=== PATIENT | female | born 1970 | race Caucasian/White ===

== ENCOUNTER 2022-09-02 15:18 | Emergency (ER) | payer OTHER, SELFPAY ==
--- NOTE | 2022-09-02 15:22 | ED.CHESTPAIN ---
HPI - Chest Pain General Chief Complaint: Chest Pain Stated Complaint: Chest Pain/Back Pain Time Seen by Provider: 09/02/22 15:22 Source: patient, family and RN notes reviewed History of Present Illness HPI narrative: patient is a 52-year-old female who presents to the Urgent Care with her spouse with complaints of right-sided chest discomfort increased with deep breathing and shortness of breath. Patient states that it started this morning has worsened in the last 30 minutes. Patient was then able to finish her drive home this evening. Patient recently started potassium has not had her levels redrawn since then. States that she has been doing her inhaler and nebulizers for shortness of breath today without much improvement. Patient also has a history of asthma and anxiety. Denies any nausea or vomiting. Denies any recent illness. No other acute complaints. Dyspnea noted. Patient aware of the plan of care. Some parts of this dictation were generated by voice recognition software and may contain typographical and/or grammatical inaccuracies. Related Data Home Medications Medication Instructions Recorded Confirmed albuterol sulfate 2.5 mg/3 mL 2.5 mg inhalation Q4H PRN 09/02/22 09/02/22 (0.083 %) solution for nebulization Shortness Of Breath albuterol sulfate 90 mcg/actuation 2 puff inhalation QID PRN 09/02/22 09/02/22 aerosol inhaler Shortness Of Breath alprazolam 0.25 mg tablet 0.25 mg PO BID 09/02/22 09/02/22 amlodipine 5 mg tablet 5 mg PO DAILY 09/02/22 09/02/22 calcium carbonate 600 mg-vitamin 1 tablet PO DAILY 09/02/22 09/02/22 D3 5 mcg (200 unit) tablet epinephrine 0.3 mg/0.3 mL 0.3 mg IM DAILY PRN Allergic 09/02/22 09/02/22 injection, auto-injector Reaction hydrochlorothiazide 25 mg tablet 25 mg PO DAILY 09/02/22 09/02/22 potassium chloride 10 mEq 10 meq PO DAILY 09/02/22 09/02/22 tablet,extended release Allergies Allergy/AdvReac Type Severity Reaction Status Date / Time cefaclor Allergy Unknown Unknown Verified 09/02/22 16:09 diphenhydramine Allergy Unknown Unknown Verified 09/02/22 16:08 [From Benadryl] Penicillins Allergy Unknown Unknown Verified 09/02/22 16:10 prochlorperazine Allergy Unknown Unknown Verified 09/02/22 16:11 PAPER TAPE Allergy Mild Rash Uncoded 09/02/22 16:09 Review of Systems Review of Systems: CONSTITUTIONAL: Denies fever, chills, or sweats. EYES: Denies visual changes, redness, or discharge. ENT: Denies rhinorrhea, congestion, sore throat, or otalgia. CARDIOVASCULAR: reports of right-sided chest discomfort RESPIRATORY: reports of dyspnea exacerbated with activity GASTROINTESTINAL: Denies abdominal pain, nausea, vomiting, or diarrhea. GENITOURINARY: Denies dysuria or hematuria. SKIN: Denies rash or itching. MUSCULOSKELETAL: Denies back pain, joint pain, or myalgia. NEUROLOGIC: Denies headache, numbness, or weakness. All other systems reviewed are negative, except as documented in HPI. PMFSH Comments At the time of my signature, I reviewed and agree with the nursing past medical, surgical, social, and family history. There is no relevant family history pertinent to the patient complaint. Exam Narrative: GENERAL: This is a well-nourished, well-developed patient. Anxious HEAD: normocephalic, atraumatic. EYES: PERRL. Sclera clear/white. Vision is grossly intact. EARS: External ears normal NOSE: External nose normal with no obvious nasal discharge, nares without redness, no rhinorrhea. THROAT: Mucous membranes moist NECK: Neck supple CARDIOVASCULAR: Regular rate and rhythm RESPIRATORY: Clear to auscultation. dyspnea SKIN: warm, intact with no suspicious lesions or rash, good texture and turgor. NEURO: awake, alert, and oriented to person, place and time. There were no obvious focal neurologic abnormalities. EXTREMITIES: No clubbing, cyanosis, or edema. Course Course Level of Care: Express Care Visit Vital Signs Vital signs: Vital Signs Temperature 97
[2022-09-02 15:24] VITALS: BP 170/65; PULSE 70; RESP 24; TEMP 36.2; O2SAT 98
--- NOTE | 2022-09-02 15:32 | ECG_ITS ---
Measurements Intervals Fults Rate: 61 P: 51 WY: 219 QRS: 9 QRSD: 108 T: 30 QT: 450 QTc: 457 Interpretive Statements SINUS RHYTHM WITH PROLONGED WY INTERVAL/1ST DEGREE AV BLOCK ABNORMAL ECG INTERPRETATION BASED ON A DEFAULT AGE OF 40 YEARS NO PREVIOUS ECG AVAILABLE FOR COMPARISON Electronically Signed On 09-03-2022 14:42:03 INFORMATION TECHNOLOGY AUDIT MANAGER by Jimy Ray M.D.
[2022-09-02 15:54] VITALS: BP 157/78; PULSE 78; RESP 22; O2SAT 100
== END 2022-09-02 15:54 | disposition short-term general hospital (02) ==
PROVIDERS: Emergency Provider Nurse Practitioner Family
DX: R07.9 Chest pain, unspecified (principal); I44.0 Atrioventricular block, first degree; I10 Essential (primary) hypertension; J45.909 Unspecified asthma, uncomplicated; F41.9 Anxiety disorder, unspecified
CPT/HCPCS: 93005; 99215; G0463

== ENCOUNTER 2023-10-17 12:23 | Emergency (ER) | payer OTHER, SELFPAY ==
--- NOTE | ~2023-10-17 | XR_ITS ---
Right ankle Technique: AP, oblique, and lateral views were obtained. Clinical History: Pain Findings: There is a mildly displaced lateral talar fracture. Ankle mortise and other visualized humble nt spaces are preserved. Plantar calcaneal spur present. Soft tissues are otherwise unremarkable. Impression: Mildly displaced lateral talar fracture. Reviewed, dictated and finalized at [facility]. [employer] Impression: Mildly displaced lateral talar fracture.
[2023-10-17 12:42] VITALS: BP 132/69; PULSE 73; RESP 16; TEMP 36.3; O2SAT 99
--- NOTE | 2023-10-17 13:46 | ED.FALL ---
HPI - Fall General Chief Complaint: Fall Stated Complaint: Fall Injury/Right Ankle/Head Time Seen by Provider: 10/17/23 13:46 Source: patient, RN notes reviewed and old records reviewed Mode of arrival: ambulatory Limitations: no limitations History of Present Illness HPI Narrative: are 53-year-old female who presents to [facility] Care who fell today at home this morning with injury to her right lateral ankle area when she was trying to get something out of basket and step stool folded up on her. Patient has noted swelling and bruising to right lateral malleolus area noted. Patient reports that she has had ligament repair to her right ankle in the past and has boot at home, does not want to be splinted. Patient has been seeing Dr Singh orthopedic surgeon for her left arm/ elbow problem and wishes to follow up with their office.Patient does admit to hitting the back of her head with no LOC or residual headache pain or any dizziness. not on any blood thinner. MD complaint: fall Onset (ago): hour(s) (this morning) Fall from: from height (distance) (4-5 feet) Place fall occurred: home Loss of consciousness: none Location of injury: other (right foot/ankle) Severity scale (1-10): 5 Quality: aching and throbbing Related Data Home Medications Medication Instructions Recorded Confirmed albuterol sulfate 2.5 mg/3 mL 2.5 mg inhalation Q4H PRN 09/02/22 09/02/22 (0.083 %) solution for nebulization Shortness Of Breath albuterol sulfate 90 mcg/actuation 2 puff inhalation QID PRN 09/02/22 09/02/22 aerosol inhaler Shortness Of Breath alprazolam 0.25 mg tablet 0.25 mg PO BID 09/02/22 09/02/22 amlodipine 5 mg tablet 5 mg PO DAILY 09/02/22 09/02/22 calcium carbonate 600 mg-vitamin 1 tablet PO DAILY 09/02/22 09/02/22 D3 5 mcg (200 unit) tablet epinephrine 0.3 mg/0.3 mL 0.3 mg IM DAILY PRN Allergic 09/02/22 09/02/22 injection, auto-injector Reaction hydrochlorothiazide 25 mg tablet 25 mg PO DAILY 09/02/22 09/02/22 potassium chloride 10 mEq 10 meq PO DAILY 09/02/22 09/02/22 tablet,extended release budesonide 3 mg mg PO 10/17/23 capsule,delayed,extended release rosuvastatin 20 mg tablet mg 10/17/23 Allergies Allergy/AdvReac Type Severity Reaction Status Date / Time cefaclor Allergy Unknown Unknown Verified 09/02/22 16:09 diphenhydramine Allergy Unknown Unknown Verified 09/02/22 16:08 [From Benadryl] Penicillins Allergy Unknown Unknown Verified 09/02/22 16:10 prochlorperazine Allergy Unknown Unknown Verified 09/02/22 16:11 PAPER TAPE Allergy Mild Rash Uncoded 09/02/22 16:09 Review of Systems Review of Systems: CONSTITUTIONAL: Denies fever, chills, or sweats. EYES: Denies visual changes, redness, or discharge. ENT: Denies rhinorrhea, congestion, sore throat, or otalgia. CARDIOVASCULAR: Denies chest pain, palpitations, or edema. RESPIRATORY: Denies cough or dyspnea. GASTROINTESTINAL: Denies abdominal pain, nausea, vomiting, or diarrhea. GENITOURINARY: Denies dysuria or hematuria. SKIN: Denies rash or itching. MUSCULOSKELETAL: Denies back pain, positive for right lateral ankle region pain and swelling, or myalgia. NEUROLOGIC: Denies headache, numbness, or weakness. PSYCHIATRIC: Reports anxiety or depression. All systems reviewed & are unremarkable except as noted in HPI and below PMFSH Past Medical History Medical History (Updated 10/18/23 @ 13:24 by Petrona Garcia NP) Anxiety Asthma Cirrhosis unsure of cause History of kidney cancer Hyperlipidemia Hypertension Spleen enlarged Surgical History Surgical History (Updated 10/18/23 @ 13:07 by Petrona Garcia NP) H/O left nephrectomy S/P ankle ligament repair right Social History Social History (Updated 10/18/23 @ 13:02 by Petrona Garcia NP) Smoking status: Never smoker Alcohol intake: current Alcohol use details: rare Substance use type: does not use Living arrangements: with family Gender identity (if verbalized by the patient): Fema
== END 2023-10-17 14:33 | disposition home or self-care (01) ==
PROVIDERS: Emergency Provider Registered Nurse; PCP Hospitalist
DX: S92.141A Displaced dome fracture of right talus, initial encounter for closed fracture (principal); W19.XXXA Unspecified fall, initial encounter; J45.909 Unspecified asthma, uncomplicated; E78.5 Hyperlipidemia, unspecified; Z85.528 Personal history of other malignant neoplasm of kidney; I10 Essential (primary) hypertension; F41.9 Anxiety disorder, unspecified
CPT/HCPCS: 73610; 99214; G0463